=== PATIENT | female | born 1935 | race Caucasian/White ===

== ENCOUNTER 2019-01-12 14:21 | Inpatient (IN) | payer OTHER ==
[~2019-01-12] VITALS: Ht 152.4 cm; Wt 83.0 kg
[2019-01-12 14:22] VITALS: BP 140/87
[2019-01-12 14:57] LABS: ABSOLUTE NEUTROPHILS 3.9 thou/uL (1.4-8.2); BASOPHILS 1.5 % (0.0-2.0); EOSINOPHILS 2.1 % (0.0-3.0); HEMATOCRIT 42.8 % (37.0-47.0); HEMOGLOBIN 14.1 gm/dL (12.0-15.0); LYMPHOCYTES 26.6 % (24.0-44.0); MCH 31.5 pg (26.0-34.0); MCHC 32.9 g/dL (28.0-37.0); MCV 95.7 fL (80.0-100.0); MONOCYTES 11.2 % (1.0-8.0); PLATELET COUNT 302 thou/uL (150-400); POLYS 58.6 % (36.0-66.0); RBC 4.48 mil/uL (4.20-5.00); RDW 13.8 % (10.5-14.5); WBC 6.6 thou/uL (4.0-11.0)
[2019-01-12 15:08] LABS: CALCIUM 9.5 mg/dL (8.5-10.1); CREATININE 1.5 mg/dL (0.6-1.0); POTASSIUM 3.7 mmol/L (3.5-5.1)
[2019-01-12 15:09] LABS: PROTIME 10.2 Seconds (9.3-11.4)
[2019-01-12 15:15] LABS: ALBUMIN 3.4 g/dL (3.4-5.0); TOTAL BILIRUBIN 0.5 mg/dL (<0.1-1.0); TOTAL PROTEIN 8.1 g/dL (6.4-8.2)
[2019-01-12 16:53] VITALS: BP 135/75
[2019-01-12 17:46] VITALS: BP 131/67
[2019-01-12 19:17] VITALS: BP 136/72
--- NOTE | 2019-01-12 19:55 | NUR ---
ASSUMED CARE OF PATIENT APPRPOX. 1730. PT A&OX4, VSS/NO DISTRESS, DENIES PAIN AND SOA. DOCTOR SAW PATIENT IN ER BEFORE COMING UP. PT ANIAK, BUT CAN READ LIPS. ADMISSION HX AND ASSESSMENT PASSED TO ONCOMING NURSE. WILL CONTINUE TO MONITOR.
[2019-01-13 04:07] VITALS: BP 130/65
[2019-01-13 05:30] LABS: HEMATOCRIT 38.2 % (37.0-47.0); HEMOGLOBIN 12.7 gm/dL (12.0-15.0); MCHC 33.3 g/dL (28.0-37.0); MCV 95.9 fL (80.0-100.0); RBC 3.98 mil/uL (4.20-5.00); RDW 13.7 % (10.5-14.5); WBC 6.1 thou/uL (4.0-11.0)
[2019-01-13 05:47] LABS: CALCIUM 8.8 mg/dL (8.5-10.1); CREATININE 1.3 mg/dL (0.6-1.0); POTASSIUM 3.5 mmol/L (3.5-5.1)
--- NOTE | 2019-01-13 07:45 | NUR ---
Assumed pt care at 1900. Pt is A/OX4,very hard of hearing wears a left ear VELASQUEZ,pt normally reads lips. Denies pain on assessment. Area on RLE slightly red and warm to touch. Pt is up with SBA to BR.Fall education reinforced and pt calling approp. Fall precautions implemented.
[2019-01-13 08:00] VITALS: BP 146/65
--- NOTE | 2019-01-13 09:50 | EKG ---
[place] [address] [facility] [employer] 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 : 1935 Requested By: Hector Zamora Order Number: [id number] MD: Hector Zamora Measurements Intervals [place] Rate: 80 P: 90 IL: 216 QRS: 157 QRSD: 81 T: 1 QT: 390 QTc: 450 Interpretive Statements Sinus rhythm with atrial premature complexes Borderline low voltage, extremity leads Probable right ventricular hypertrophy Compared to ECG 10/28/2000 13:05:07 Sinus tachycardia no longer present Electronically Signed On 01-13-2019 9:50:12 CDT by Hector Zamora [email or web address] ��������������������������������������������� <ELECTRONICALLY SIGNED> ���������������������������������������� By: Hector Zamora MD, [facility] ��������������������������������������������� 01/13/19 0950 0750 0750 Hector Zamora MD, [facility] /EPI
--- NOTE | 2019-01-13 10:15 | 2DMMODE ---
[facility] [place] [address] 2 D/M-MODE ECHOCARDIOGRAM Name: INO VILLALOBOS Room #: 459-P ADM IN M.R.#: [id number] ������������� Admission: 01/12/19 ������������� Attend Phys: Roxana Tate MD Discharge: ��� ������������� ��� Date of : 39 Date of Service: 01/13/19 1014 �� Report #: [id number] �������� ��������������������������������������������[id number] THIS REPORT FOR: //name// APPROVED REPORT Study performed: 01/13/2019 09:37:38 EXAM: Comprehensive 2D, Doppler, and color-flow Echocardiogram Patient Location: Echo lab Room #: [facility] Status: routine BSA: 1.80 HR: 90 bpm BP: 130/65 mmHg Rhythm: Sinus arrhythmia Other Information Study Quality: Good Indications New murmur. Hx: DVT, PE. 2D Dimensions RVDd: 31.82 mm IVSd: 12.87 (7-11mm) LVOT Diam: 20.11 (18-24mm) LVDd: 35.16 mm PWd: 9.58 (7-11mm) Ascending Ao: 38.42 (22-36mm) LVDs: 24.64 (25-40mm) Aortic Root: 30.78 mm Volumes Left Atrial Volume (Systole) Single Plane 4CH: 45.99 mL Single Plane 2CH: 43.89 mL LA ESV Index: 27.00 mL/m2 Aortic Valve AoV Peak Alvarez.: 1.37 m/s AO Peak Gr.: 7.66 mmHg LVOT Max P.47 mmHg LVOT Max V: 1.16 m/s TRISTIN Vmax: 2.68 cm2 Mitral Valve E/A Ratio: 0.7 MV Decel. Time: 193.70 ms MV E Max Alvarez.: 0.69 m/s [facility] [place] [place] [address] 2 D/M-MODE ECHOCARDIOGRAM Name: INO VILLALOBOS Room #: 459-[facility] IN M.R.#: [id number] ������������� Admission: 01/12/19 ������������� Attend Phys: Roxana Tate MD Discharge: ��� ������������� ��� Date of : 39 Date of Service: 01/13/19 1014 �� Report #: [id number] �������� ��������������������������������������������[id number] MV A Alvarez.: 0.94 m/s MV PHT: 56.17 ms IVRT: 62.28 ms Pulmonary Valve PV Peak Alvarez.: 1.18 m/s PV Peak Gr.: 5.56 mmHg Pulmonary Vein P Vein S: 0.71 m/s P Vein A: 0.36 m/s P Vein D: 0.34 m/s P Vein A Dur.: 93.4 msec P Vein S/D Ratio: 2.09 Tricuspid Valve TR Peak Alvarez.: 3.21 m/s RAP Estimate: 5.00 mmHg TR Peak Gr.: 41.42 mmHg PA Pressure: 46.00 mmHg Left Ventricle The left ventricle is normal size. There is normal LV segmental wall motion. There is normal left ventricular wall thickness. Left ventricular systolic function is normal. LVEF is 60-65%. Mild diastolic dysfunction is present (impaired relaxation pattern). Right Ventricle The right ventricle is normal size. The right ventricular systolic function is normal. Atria The left atrium size is normal. Right atrium is mildly dilated. Aortic Valve Aortic valve is trileaflet. No aortic regurgitation is present. There is no aortic valvular stenosis. Mitral Valve The mitral valve is normal in structure. Trace mitral regurgitation. Tricuspid Valve The tricuspid valve is normal in structure. Moderate tricuspid regurgitation; eccentric jet. Estimated PAP is 45-50mmHg. Pulmonic Valve The pulmonary valve is normal in structure. Mild pulmonic [address] [address] 2 D/M-MODE ECHOCARDIOGRAM Name: INO VILLALOBOS Julieta Room #: 459-P [facility] IN [facility]#: [id number] ������������� Admission: 01/12/19 ������������� Attend Phys: Roxana Tate MD Discharge: ��� ������������� ��� Date of : 39 Date of Service: 01/13/19 1014 �� Report #: [id number] �������� ��������������������������������������������[id number] regurgitation. Great Vessels The aortic root is normal in size. The ascending aorta is mildly dilated at 3.8cm. IVC is normal in size and collapses >50% with inspiration. Pericardium There is no pericardial effusion. <Conclusion> Left ventricular systolic function is normal. There is normal left ventricular wall thickness. There is normal LV segmental wall motion. LVEF is 60-65%. Mild diastolic dysfunction Aortic valve is trileaflet. No aortic regurgitation or stenosis. The mitral valve is normal in structure. Trace mitral regurgitation. Moderate tricuspid regurgitation; eccentric jet. Estimated pulmonary artery pressure of 45-50mmHg. There is no pericardial effusion. ��������������������������������������������� <ELECTRONICALLY SIGNED> ���������������������������������������� By: Hector Zamora MD, [facility] ��������������������������������������������� 01/13/19 1014 1014 1014 Hector aZmora MD, FAC /INF
[2019-01-13 15:00] VITALS: BP 124/63
--- NOTE | 2019-01-13 15:24 | NUR ---
PT ADMITTED RELATED TO FAILED OP TREATMENT,VENOUS THROMBOSIS. CM REVIEWED CHART AND SPOKE WITH CARE TEAM. CM MET WITH PT AND SON AT BEDSIDE THIS DAY. PT IS VERY AGDAAGUX BUT A&O X4. CM ROLE INTRODUCED. THEY INDICATED THAT PT HAD BEEN LIVING IN A HOUSE WITH HER SISTER IN [facility] [employer]RAF[place]. SHE INDICATED THERE AREN'T ANY STEPS TO ENTER AND NO STEPS INSIDE. 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 PT INDICATED THAT SHE PLANS TO RETURN HOME TO HER SISTERS HOUSE WITH HH ONCE MEDICALLY STABLE. PT INDICATED THAT HER ADDRESS IS [address] [facility]. CARE TEAM INDICATED THAT PT WILL LIKELY BE MEDICALLY STABLE TO DC HOME ONCE TOMORROW. CM TO FOLLOW INDICATED WITH DC PLANNING.
--- NOTE | 2019-01-13 18:58 | NUR ---
AAOX4 VERY PLEASANT AND COOPERATIVE. GOOD APPETITE FOR MEALS. AMBULATES WITH SLOW STEADY GAIT. VOIDS CLEAR YELLOW URINE. RIGHT HAND SALINE LOCK INTACT. ECHO DONE TODAY. WORKED WITH BOTH PT AND OT. USES CALL LIGHT APPROPRIATELY. NO C/O PAIN.
[2019-01-13 20:11] VITALS: BP 129/54
--- NOTE | 2019-01-14 03:10 | NUR ---
Assumed pt care at 1900. A/OX4,pt is hard of hearing wears a left ear hearing aid only;reads speaker's lips. Denies pain on assessment although c/o tenderness on inner right thigh. Up w/SBA to the BR.Voiding w/o difficulties.Resting quietly at this time,fall precautions implemented.Will continue to monitor pt.
[2019-01-14 04:45] VITALS: BP 125/60
[2019-01-14 07:20] VITALS: BP 117/58
--- NOTE | 2019-01-14 13:45 | NUR ---
TOWARDS POC PT A/O X4, HARD OF HEARING. VSS, AFEBRILE. DENIES PAIN. NO CONCERNS VOICED. WILL CONTINUE TO MONITOR.
[2019-01-14 13:47] VITALS: BP 117/58
[2019-01-14] MEDS ORDERED: NEURONTIN 400400 M1 PO (14:11)
[2019-01-14] MEDS ORDERED: ACETAMINOPHEN325 M1 PO (14:11)
[2019-01-14] MEDS ORDERED: PANTOPRAZOLE SO40 M1 PO (14:11)
[2019-01-14] MEDS ORDERED: METOPROLOL SUCC25 M1 PO (14:11)
[2019-01-14] MEDS ORDERED: COZAAR 25 MG TA25 M1 PO (14:11)
[2019-01-14] MEDS ORDERED: AMBIEN 5 MG TABL5 M1 PO (14:11)
[2019-01-14] MEDS ORDERED: MIRALAX17 GM PO (14:11)
[2019-01-14] MEDS ORDERED: XARELTO20 MG PO (14:11)
[2019-01-14] MEDS ORDERED: XARELTO15 MG PO (14:11)
--- NOTE | 2019-01-14 16:16 | NUR ---
CARE TEAM INDICATED THAT PT IS MEDICALLY STABLE TO DC HOME THIS DAY. PT IS TO HAVE [facility] HH UPON DC. CM PROVIDED PT'S SISTER'S ADDRESS WHERE SHE WILL BE UPON DC. PT'S FAMILY IS TO TRANSPORT. NO OTHER CM INTERVENTION INDICATED CASE CLOSED.
== END 2019-01-14 18:03 | disposition home health service (06) | DRG 300 ==
LOC: ER 14:21 → EROBS 16:24 → 4W 16:24 → ENTRNSPT 01-14 17:18 → 4W 01-14 18:03
PROVIDERS: Physician Assistant; ADMIT Internal Medicine
DX: I82.811 Embolism and thrombosis of superficial veins of right lower extremity (principal); D68.59 Other primary thrombophilia; M48.54XA Collapsed vertebra, not elsewhere classified, thoracic region, initial encounter for fracture; M79.7 Fibromyalgia; I12.9 Hypertensive chronic kidney disease with stage 1 through stage 4 chronic kidney disease, or unspecified chronic kidney disease; N18.9 Chronic kidney disease, unspecified; R31.9 Hematuria, unspecified; J44.9 Chronic obstructive pulmonary disease, unspecified; I27.20 Pulmonary hypertension, unspecified; K52.9 Noninfective gastroenteritis and colitis, unspecified; K59.00 Constipation, unspecified; I07.1 Rheumatic tricuspid insufficiency; I48.0 Paroxysmal atrial fibrillation; Z88.2 Allergy status to sulfonamides; Z88.8 Allergy status to other drugs, medicaments and biological substances; Z79.899 Other long term (current) drug therapy
CPT/HCPCS: 10040

== ENCOUNTER → 2020-09-21 | Outpatient (CLI) | payer OTHER ==
[~2020-09-21] MED LIST: ACETAMINOPHEN325 M1 PO; ACIDOPHILUS1 EAC4 PO; AMBIEN 5 MG TABL5 M1 PO; CALCIUM 500 +1 EAC6 PO; CARAFATE1 GM/10 ML PO; COZAAR 25 MG TA25 M1 PO; ELIQUIS5 MG PO; ENOXAPARIN80 MG/0.1 SUBQ; HYDROCODON-ACE1 EAC7 PO; METOPROLOL SUCC25 M1 PO; MINOCYCLINE HC100 M2 PO; MIRALAX17 GM PO; NEURONTIN 400400 M1 PO; NORCO 5-325 TA1 EAC1 PO; PANTOPRAZOLE SO40 M1 PO; PRAVACHOL40 MG PO; XARELTO15 MG PO; XARELTO20 MG PO
== END ==
LOC: RAD 10:14
PROVIDERS: ATTEND Internal Medicine
DX: I51.7 Cardiomegaly (principal); K44.9 Diaphragmatic hernia without obstruction or gangrene

== ENCOUNTER → 2020-09-21 | Outpatient (CLI) | payer OTHER | LOC: LAB 12:05 | PROVIDERS: ATTEND Internal Medicine | DX: Z20.822 Contact with and (suspected) exposure to COVID-19 (principal) ==

== ENCOUNTER → 2020-09-26 | Outpatient (CLI) | payer OTHER ==
--- NOTE | 2020-10-09 07:50 | PFR/MVV ---
[facility] [place] [address] PULMONARY FUNCTION MVV/REPORT Name: INO VILLALOBOS Room #: [facility].#: [id number] Admission: 09/26/20 Attend Phys: Toño Palma MD Discharge: Date of : 39 Report #: [id number] THIS REPORT FOR: //name// >> SPIROMETRY: (BTPS) Height: 66 in cm Weight: 184 lbs kg Exam Date: 09/26/20 PRE-RX POST-RX PRED BEST %PRED BEST %PRED %CHG FVC LITERS . 2.75 . 1.47 . 53 . 1.53 . 56 . 4 FEV1 LITERS . 1.87 . 1.21 . 65 . 1.24 . 66 . 2 FEV1/FVC % . 69 . 83 . 119 . 81 . 117 . -2 NBJ06-48% L/Sec . 2.02 . 1.49 . 74 . 1.35 . 67 . -10 PEF L/SEC . 5.40 . 5.63 . 104 . 6.26 . 116 . 11 FEF50/FIF50 UNITLESS . <1.00 . 6.23 . . 1.74 . . -72 MVV L/Min . . . f 1/Min . . . >> LUNG VOLUMES: (BTPS) PRE-RX POST-RX PRED AVG %PRED AVG %PRED %CHG VC Liters . 2.75 . 2.02 . 74 . . . TLC Liters . 5.11 . 2.50 . 49 . . . RV Liters . 2.21 . 0.48 . 22 . . . RV/TLC % . 44 . 19 . 44 . . . FRC [address] Liters . 2.75 . 1.00 . 36 . . . FRC N2 Liters . 2.75 . . . . . ERV Liters . 0.95 . 0.52 . 56 . . . IC Liters . 1.89 . 1.39 . 73 . . . >> DIFFUSION: DLCO ml/Min/mmHg . 20.8 . 15.5 . 75 . . . DL Sharonda ml/Min/mmHg . 20.8 . 15.5 . 75 . . . DLCO/VA ml/Min/mmHg . 3.22 . 3.75 . 116 . . . VA Liters . . 4.14 . . . . COMMENTS: COMMENTS: >> RESISTANCE: [facility] [address] [place] [address] PULMONARY FUNCTION MVV/REPORT Name: INO VILLALOBOS Julieta Room #: [facility] Jadon.#: [id number] Admission: 09/26/20 Attend Phys: Toño Palma MD Discharge: Date of : 39 Report #: [id number] PRE-RX PRED AVG %PRED Raw Total cmH20/L/Sec . . 10.12 . Raw Insp cmH20/L/Sec . . 16.43 . Raw Exp cmH20/L/Sec . . 11.10 . Raw cmH20/L/Sec . 1.39 . 2.40 . 172 Gaw L/Sec/cmH20 . 0.660 . 0.418 . 63 sRaw cmH20 Sec . 3.83 . 3.43 . 90 sGaw l/cmH20 Sec . 0.261 . 0.292 . 112 Vtq Liters . . 1.43 . # = OUTSIDE 95% CONFIDENCE INTERVAL CALIBRATION: PRED: 3.00 ACTUAL: EXP 3.01 INSP 3.02 [facility]-OL10-06 [facility]- N-[id number] >> INTERPRETATION/IMPRESSION: DATE OF SERVICE: 09/26/2020 PULMONARY FUNCTION STUDIES ATTENDING PHYSICIAN: Dr. Toño Palma. SPIROMETRY: FEV1 is 1.21 liters (65%), FVC is 1.47 liters (53% predicted), FEV1/FVC is 83%. Post-bronchodilator therapy with no significant response. LUNG VOLUMES: Total lung capacity is 2.50 liters (49% predicted). DLCO is 75% and normal. 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 Diffusing capacity is normal. Please correlate clinically. <ELECTRONICALLY SIGNED> By: Lavon Calderon MD 10/09/20 0750 Lavon Calderon MD /nt
== END ==
LOC: PUL 13:03
PROVIDERS: ATTEND Internal Medicine
DX: J84.9 Interstitial pulmonary disease, unspecified (principal)

== ENCOUNTER → 2020-11-17 | Outpatient (CLI) | payer OTHER | LOC: CAT 10:09 | PROVIDERS: ATTEND Internal Medicine | DX: S22.080D Wedge compression fracture of T11-T12 vertebra, subsequent encounter for fracture with routine healing (principal); J84.9 Interstitial pulmonary disease, unspecified; J96.11 Chronic respiratory failure with hypoxia; Z86.16 Personal history of COVID-19; J98.11 Atelectasis; K44.9 Diaphragmatic hernia without obstruction or gangrene; X58.XXXD Exposure to other specified factors, subsequent encounter ==

== ENCOUNTER → 2021-02-27 | Outpatient (CLI) | payer OTHER | LOC: RAD 13:57 | PROVIDERS: ATTEND Internal Medicine | DX: J84.9 Interstitial pulmonary disease, unspecified (principal); R06.02 Shortness of breath ==

== ENCOUNTER → 2021-07-13 | Outpatient (CLI) | payer OTHER | LOC: CAT 05-23 14:19 | PROVIDERS: ATTEND Internal Medicine | DX: J44.9 Chronic obstructive pulmonary disease, unspecified (principal); J84.9 Interstitial pulmonary disease, unspecified; I70.0 Atherosclerosis of aorta; I25.10 Atherosclerotic heart disease of native coronary artery without angina pectoris; M25.78 Osteophyte, vertebrae; K44.9 Diaphragmatic hernia without obstruction or gangrene; Z86.16 Personal history of COVID-19 ==